=== PATIENT | male | born 1995 | race African-American/Black ===

== ENCOUNTER 2022-09-05 11:10 | Outpatient (REF) | payer OTHER, SELFPAY ==
[2022-09-05 13:32] LABS: MANUAL DIFF FLAG NO
[2022-09-05 13:34] LABS: Basophils Percent Auto 0.4 % (0-2); Eosinophils Absolute Auto 0.1 X10*3/uL (0.0-0.4); Eosinophils Percent Auto 1.9 % (0-4); Hematocrit 40.8 % (42.0-52.0); Hemoglobin 12.3 g/dl (14.0-18.0); Imm Gran Abs Auto 0.03 X10*3/uL (0.00-0.03); Imm Gran Pct Auto 0.4 % (0.0-0.4); Lymphocytes Absolute Auto 1.8 X10*3/uL (1.2-4.9); Lymphocytes Percent Auto 26.2 % (20-40); Mean Corpuscular HGB Conc 30.1 g/dl (31.0-36.0); Mean Corpuscular Hemoglobin 22.2 pg (27.0-33.0); Mean Corpuscular Volume 73.5 fL (80.0-98.0); Mean Platelet Volume 11.2 fL (9.4-12.4); Monocytes Absolute Auto 0.6 X10*3/uL (0.1-1.2); Monocytes Percent Auto 8.4 % (2-11); Neutrophils Absolute Auto 4.3 x10*3/uL (2.0-8.3); Neutrophils Percent Auto 62.7 % (45-73); Platelet Count 156 X10*3/uL (160-400); Red Blood Count 5.55 X10*6/uL (4.60-5.80); Red Cell Distribution Width 15.7 % (11.0-16.0); White Blood Count 6.9 X10*3/uL (4.8-10.8)
[2022-09-05 14:09] LABS: Alanine Aminotransferase 28 U/L (0-40); Albumin Level 4.2 g/dL (3.5-5.0); Alkaline Phosphatase 49 U/L (39-117); Anion Gap 14 (12-20); Aspartate Amino Transferase 40 U/L (5-37); Bilirubin Total 0.3 mg/dL (0.0-1.0); Blood Urea Nitrogen 12 mg/dL (9-16); Calcium 9.4 mg/dL (8.4-10.2); Carbon Dioxide 26 mmol/L (22-29); Chloride 105 mmol/L (96-108); Cholesterol 191 mg/dL; Estimated Glomerular Filt Rate > 60; Glucose Fasting 86 mg/dL (60-99); HDL Cholesterol 71 mg/dL; LDL Cholesterol Calculated 103 mg/dl; Potassium 4.6 mmol/L (3.3-5.1); Sodium 140 mmol/L (135-145); Thyroid Stimulating Hormone 1.45 uIU/mL (0.32-4.0); Total Protein 6.6 g/dL (6.5-8.0); Triglycerides 89 mg/dL
[2022-09-08 05:32] LABS: TS Negative Control Passed; TS Panel A 0; TS Panel B 0; TS Positive Control Passed; TSpotTB Negative (Negative)
[2022-09-08 17:32] LABS: Rubella IgG Antibody 3.03 Index
[2022-09-08 17:36] LABS: Rubeola IgG (Measles) >300.00 AU/mL
== END 2022-09-05 11:11 | disposition home or self-care (01) ==
LOC: HO.10HDL 11:10
PROVIDERS: Visit Provider Internal Medicine
DX: Z00.00 Encounter for general adult medical examination without abnormal findings (principal); Z11.1 Encounter for screening for respiratory tuberculosis; F12.988 Cannabis use, unspecified with other cannabis-induced disorder; F41.8 Other specified anxiety disorders; I10 Essential (primary) hypertension; U07.0 Vaping-related disorder
CPT/HCPCS: 36415; 80053; 80061; 84443; 85025; 86481; 86735; 86762; 86765; 86787

== ENCOUNTER 2023-01-09 12:00 | Outpatient (REF) | payer OTHER, SELFPAY ==
[2023-01-10 04:42] LABS: Hepatitis A Antibody IgG REACTIVE (Nonreactive)
[2023-01-10 04:45] LABS: HBS Num1 > 1000.00 mIU/mL (0-7.99); ~Hepatitis B Surface Antibody REACTIVE (Nonreactive)
== END 2023-01-09 12:01 | disposition home or self-care (01) ==
LOC: HO.10HDL 12:00
PROVIDERS: Visit Provider Internal Medicine
DX: Z11.1 Encounter for screening for respiratory tuberculosis (principal); I10 Essential (primary) hypertension
CPT/HCPCS: 36415; 86706; 86708

== ENCOUNTER 2025-06-03 10:02 | Outpatient (REF) | payer OTHER, SELFPAY ==
--- OUTSIDE RECORDS SUMMARY | 2025-06-03 11:04 | XMS_ITS | Patient Health Record ---
Author Organization [facility] [address] [place], [place] [id number] Care Team Providers Care Manager Commercial Sales Name Role Phone LANCE ESPINOZA Primary Care Provider Shawn Melchor, Lance Unavailable Unavai lable Allergies No Known Allergies Reason For Referral No Information Immunizations Vaccine Route Administration Date Status Comme nts *FLUE, Seasonal Injectable , 3 yrs and above IM Intramuscular 10/27/2020 Administered *MMR Unknown 08/22/1999 Administered DTaP Unknown 08/22/1999 Administered Meningococcal Pediatric (CVX 114) Unknown 09/15/2008 Administered Meningococcal MPSV4 SC Subcutaneous 06/02/2013 Administered ,ImmunizationNam e, ' : Meningococcal (serogroups A,C,Y & W-135) (30334) ,Status,' : Complete OPV Unknown 08/22/1999 Administered OPV Unknown 11/14/1999 Administered Tdap IM Intramuscular 10/27/2020 Administered VARICELLA VIRUS - 0.05ML Unknown 11/14/1999 Administered Social History Tobacco Use: Social History Observation Description Date Details (start date - stop date) Never Smoker NA - NA Tobacco Use/Smoking Question Answer Notes Are you a nonsmoker Alcohol Screen (Audit-C) Question Answer Notes Did you have a drink containing alcohol in the p ast year? No Points 0 Interpretation Negative Problems Problem Type SNOMED Code ICD Code Onset Dates Problem Status W/U Status Risk Notes Problem Adult health examination (074392231) PLAN FOR NEXT VISIT (Z00.00) Active confirmed Problem Vitamin D deficiency (53241145) VITAMIN D DEFICIENCY (E55.9) Active confirmed Problem Laboratory test (50030085) ENCOUNTER FOR LABORATORY TEST (Z01.89) Active confirmed Labs noted, titers values wnl, pt immune, labs discussed with pt, pt expressed understandin g. Form completed and stamped Problem Annual health maintenance examination (14153274) ANNUAL PHYSICAL EXAM (Z00.00) Active confirmed Lives w/ family, Healthy male for school physical for [employer] team, MMR,Vercella ,Hep B immune as pr lab 06/2015. verbal consent obtained for STD screenung labs Problem Allergic rhinitis (42187255) ALLERGIC RHINITIS (J30.9) Active confirmed zyrtec prn Problem Elevated liver enzymes level (269931517) ELEVATED LFTS (R94.5) Active confirmed d/w patient immunity noted for Hep B , no new rx Repeat labs 08/2015 off OTC compound , Vit D3 reordered , Problem History and physical examination, school (23146097) SCHOOL PHYSICAL EXAM (Z02.0) Active confirmed ck titers, ppd implanted rto 2 days for eval. Problem Back pain (640790674) BACK PAIN (M54.9) Active confirmed resolved. Adv Home PT PRN Problem Well child visit (994816385) ROUTINE OR CHILD HEALTH CHECK (Z00.129) 02/21/20 11 Inactive confirmed Plan Of Treatment Pending Test Test Name Order Date *TREPONEMA PALLIDUM (TOTAL) SYPHILIS SCR EEN REFLEX TO RPR (EIA)[00183] 10/27/2020 BLOOD DRAW, VENEPUNCTURE 10/27/2020 COV-2 IgG AND IgM ANTIBODIES- [id number] RS 10/27/2020 Insurance Providers Payer Name Payer Address Payer Phone Subscriber Number Group Number Insured Name Patient Relationship to Insured Coverage Start Date Coverage End Date [id number] [place] [phone] [id number] Zahira Hwang Child - Insured has Financial Responsibility Medical (General) History Medical History History ICD Code VITAMIN D DEFICIENCY E55.9 Surgical History Surgery Date(Month/Year) No pertinent past surgical history
--- OUTSIDE RECORDS SUMMARY | 2025-06-03 11:04 | XMS_ITS | Clinical Summary ---
Author Organization [address] [place] [address] [place] [id number] Phone Care Team Providers Care Finance Teacher Name Role Phone Physician, No Pcp Primary Care Provider Unavaila ble Social History Tobacco Use Types Packs/Day Years Used Date Smoking Tobacco: Never Assessed Sex and Gender Information Value Date Recorded Sex Assigned at Not on file Legal Sex Male 9:50 AM EST Gender Identity Not on file Sexual Orientation Not on file Plan of Treatment Health Maintenance Due Date Last Done Comments DTaP,Tdap,and Td Vaccines (1 - Tdap) 2014 Hepatitis B Vaccines (1 of 3 - 19+ 3-dose series) 2014 COVID-19 Vaccine (4 - 2023- season) 2024 11/03/2021, 12/22/2020, 12/01/2020 HIV Screening 09/29/2024 Hepatitis C Screening 09/29/2024 Social Influencers of Health Screening 09/29/2024 Depression Screening 10/15/2024 Influenza Vaccine (#1) 2025 , 07/15/2023, 07/11/2022, Additional history exists HIB Vaccines Aged Out No longer eligi ble based on patient's age to complete this topic HPV Vaccines Aged Out No longer eligi ble based on patient's age to complete this topic Hepatitis A Vaccines Aged Out No long er eligible based on patient's age to complete this topic IPV Vaccines Aged Out No longer eligi ble based on patient's age to complete this topic MMR Vaccines Aged Out No longer eligi ble based on patient's age to complete this topic Meningococcal ACWY Vaccine Aged Out N o longer eligible based on patient's age to complete this topic Meningococcal B Vaccine Aged Out No l onger eligible based on patient's age to complete this topic Pneumococcal Vaccine: Pediatrics (0 to 5 Years) and At-Risk Patients (6 to 49 Years) Aged Out No longer eligible based on patient's age to complete this topic RSV Immunization Patients Under 20 months Aged Out No longer eligible based on patient's age to complete this topic Varicella Vaccines Aged Out No longer eligible based on patient's age to complete this topic Insurance [employer] Care Teams Finance Teacher Relationship Specialty Start Date End Date Physician, No Pcp PCP - General 09/29/24
[2025-06-03 11:50] LABS: Alanine Aminotransferase 32 U/L (0-40); Albumin Level 4.6 g/dL (3.5-5.0); Alkaline Phosphatase 48 U/L (39-117); Anion Gap 14 (12-20); Aspartate Amino Transferase 45 U/L (5-37); Blood Urea Nitrogen 13 mg/dL (9-16); Calcium 9.5 mg/dL (8.4-10.2); Carbon Dioxide 26 mmol/L (22-29); Chloride 106 mmol/L (96-108); Cholesterol 175 mg/dL (<200); Estimated Glomerular Filt Rate > 60; HDL Cholesterol 67 mg/dL (>40); Potassium 4.3 mmol/L (3.3-5.1); Sodium 142 mmol/L (135-145); Total Protein 6.9 g/dL (6.5-8.0); Triglycerides 34 mg/dL (<150)
[2025-06-03 11:51] LABS: Thyroid Stimulating Hormone 0.90 uIU/mL (0.32-4.0)
[2025-06-03 12:18] LABS: CT PCR Urine NOT DETECTED (Not Detect.); NG PCR Urine NOT DETECTED (Not Detect.)
[2025-06-04 08:18] LABS: HIV Num 1 0.05 S/CO (0.00-0.99)
[2025-06-04 08:20] LABS: Syphilis Screen Nonreactive (Nonreactive)
== END 2025-06-03 10:03 | disposition home or self-care (01) ==
LOC: HO.10HDL 10:02
PROVIDERS: Visit Provider Internal Medicine
DX: Z00.01 Encounter for general adult medical examination with abnormal findings (principal); Z11.4 Encounter for screening for human immunodeficiency virus [HIV]; Z13.6 Encounter for screening for cardiovascular disorders; R53.83 Other fatigue; F40.01 Agoraphobia with panic disorder; F32.2 Major depressive disorder, single episode, severe without psychotic features; Z20.2 Contact with and (suspected) exposure to infections with a predominantly sexual mode of transmission
CPT/HCPCS: 80053; 80061; 84443; 86780; 87389; 87491; 87591